=== PATIENT | male | born 1935 | race Caucasian/White ===

== ENCOUNTER 2018-09-16 01:29 | Observation (INO) | payer MEDICARE, OTHER ==
[2018-09-16] MEDS ORDERED: MORPHINE SULFATE 10 MG/ML VIAL IVP ONE (01:41)
[2018-09-16] MEDS ORDERED: ONDANSETRON HCL IV 4 MG/2 ML VIAL IVP ONE (01:41)
[2018-09-16] MEDS ORDERED: 0.9 % SODIUM CHLORIDE 1000ML 1,000 ML IV SCH (01:45)
--- NOTE | 2018-09-16 01:46 | Emergency Department Record ---
History of Present Illness - General Chief Complaint: Abdominal Pain Stated Complaint: ABDOMINAL PAIN Time Seen by Provider: 09/16/18 01:41 Source: Patient Mode of Arrival: Ambulatory Limitations: No limitations - History of Present Illness Initial Comments: 83 yo male presents to ED for evaluation of epigastric pain that began several hours ago, reports vomiting x 1, denies pain to the lower abdomen. Patient does report eating a greasy meal earlier in the evening. Patient denies fevers , chills, or recent illness. Patient denies previous abdominal surgery or urinary symptoms. Patient denies previous history of diverticulitis, PUD, or colitis. MD Complaint: Abdominal pain Onset/Timin -: Hour(s) Location: Epigastric Radiation: None Migration to: No migration Severity: Moderate Quality: Aching Consistency: Constant Improves With: Nothing Worsens With: Nothing Associated Symptoms: Vomiting - Related Data Home Medications Medication Instructions Recorded Confirmed Last Taken Amlodipine Besylate/Benazepril 1 tab PO DAILY 09/16/18 09/16/18 09/15/18 [Amlodipine-Benazepril 10-20 mg] Allergies Allergy/AdvReac Type Severity Reaction Status Date / Time No Known Drug Allergies Allergy Verified 09/16/18 02:05 Review of Systems Constitutional: Denies: Chills, Fever, Malaise, Night sweats Eyes: Denies: Eye discharge, Eye pain ENT: Denies: Congestion, Ear pain, Epistaxis Respiratory: Denies: Cough, Dyspnea Cardiovascular: Denies: Chest pain, Dyspnea on exertion Endocrine: Denies: Fatigue, Heat or cold intolerance Gastrointestinal: Reports: Abdominal pain, Nausea, Vomiting. Denies: Constipation Genitourinary: Denies: Incontinence, Retention Musculoskeletal: Denies: Arthralgia, Back pain Skin: Denies: Bruising, Change in color Neurological: Denies: Abnormal gait, Confusion, Headache, Seizure Psychiatric: Denies: Anxiety Hematological/Lymphatic: Denies: Anemia, Blood Clots Physical Exam - General General Appearance: Alert, Oriented x3, Cooperative, Moderate distress Limitations: No limitations - Head Head exam: Atraumatic, Normocephalic, Normal inspection Head exam detail: negative: Abrasion, Contusion, Lazcano's sign, General tenderness, Hematoma, Laceration - Eye Eye exam: Normal appearance. negative: Conjunctival injection, Periorbital swelling, Periorbital tenderness, Scleral icterus - ENT Ear exam: negative: Auricular hematoma, Auricular trauma Nasal Exam: negative: Active bleeding, Discharge, Dried blood, Foreign body Mouth exam: negative: Drooling, Laceration, Muffled voice, Tongue elevation - Neck Neck exam: Normal inspection. negative: Meningismus, Tenderness - Respiratory Respiratory exam: Normal lung sounds bilaterally. negative: Rales, Respiratory distress, Rhonchi, Stridor - Cardiovascular Cardiovascular Exam: Regular rate, Normal rhythm, Normal heart sounds - GI/Abdominal GI/Abdominal exam: Soft, Tenderness (TTP epigastirc region on examination, no rebound/guarding present.). negative: Rebound, Rigid - Rectal Rectal exam: Deferred - exam: Deferred - Extremities Extremities exam: Normal inspection. negative: Pedal edema, Tenderness - Back Back exam: Denies: CVA tenderness (R), CVA tenderness (L) - Neurological Neurological exam: Alert, Normal gait, Oriented X3 - Psychiatric Psychiatric exam: Normal affect, Normal mood - Skin Skin exam: Normal color. negative: Abrasion Type of lesion: negative: abrasion Course Vital Signs 09/16/18 01:39 Temperature 97.5 F L Pulse Rate [ 75 Pulse Ox Probe] Respiratory 24 Rate Blood Pressure 201/107 [Right Arm] Pulse Ox 97 - Reevaluation(s) Reevaluation #1: 09/16/18 01:50 EKG: NSR 76 RBBB, No acute ST-T wave changes are present. Reevaluation #2: 09/16/18 02:18 Laboratory studies reviewed and are grossly unremarkable for an acute process except for: Potassium 4.6 BUN 24 Glucose 209 Lipase 63 Reevaluation #3: 09/16/18 02:48 Patient is back from CT imaging, reports improvement in his pain symptoms. Awaiting CT imaging results at this time. Reevaluation #4: 09/16/18 04:11 CT Abdomen and Pelvis: 1. Colonic diverticulosis, no diverticulitis 2. Fat containing umbilical hernia without bowel 3. Cholelithiasis, no biliary duct dilatation UA reviewed and appears negative for an acute process. Patient reports that his pain symptoms are greatly improved although still present. Will admit for pain control and US later this morning. Reevaluation #5: 09/16/18 06:47 Case was discussed with Dr. Farmer, will accept admission at this time. Medical Decision Making - Lab Data Result diagrams: 09/16/18 01:50 09/16/18 01:50 Disposition Disposition: Admit Clinical Impression: Biliary colic Abdominal pain Qualifiers: Abdominal location: epigastric Qualified Code(s): R10.13 - Epigastric pain Disposition: Still a Patient at [facility] Decision to Admit: Admit from ER Decision to Admit Date: 09/16/18 Decision to Admit Time: 04:34 Condition: (2) Stable Time of Disposition: 04:34 Quality - Quality Measures Quality Measures: N/A - Blood Pressure Screening Does Patient Have Any of the Following: Active Dx of HTN Blood Pressure Classification: Pre-Hypertensive BP Reading Systolic Measurement: 172 Diastolic Measurement: 89 Screening for High Blood Pressure: Patient Exclusion, Hx of HTN [[id number]] Pre-Hypertensive Follow-up Interventions: Referral to alternative/primary care provider.
[2018-09-16 02:01] LABS: HEMOGLOBIN 13.9 gm/dl (14.0-18.0); MEAN CELL VOLUME 84.4 fl (81-97); MEAN CORPUSCULAR HEMOGLOBIN 29.3 pg (27-33); MEAN CORPUSCULAR HGB CONC 34.8 g/dl (32-36); MEAN PLATELET VOLUME 9.7 fl (7.4-10.4); PLATELET COUNT 151 K/uL (130-400); RED BLOOD COUNT 4.74 M/uL (4.40-5.70); RED CELL DISTRIBUTION WIDTH 13.1 % (11.5-14.5)
[2018-09-16 02:10] LABS: BLOOD UREA NITROGEN 24 mg/dL (8-23); CREATININE 1.2 mg/dL (0.7-1.2); EST GLOMERULAR FILTRATION RATE > 60 mL/min
[2018-09-16 02:11] LABS: LIPASE 63 U/L (13-60); TOTAL PROTEIN 7.7 g/dL (6.6-8.7)
[2018-09-16 02:13] LABS: GLUCOSE,RANDOM 209 mg/dL (74-109)
[2018-09-16 02:16] LABS: ALB/GLOB RATIO 1.5 (1.1-1.8); ALBUMIN 4.6 g/dL (4.0-5.0); ALKALINE PHOSPHATASE 79 U/L (55-149); ALT/SGPT 15 U/L (<41); AST/SGOT 13 U/L (10.0-50.0)
[2018-09-16 02:18] LABS: ANISOCYTOSIS 1+; PLATELET ESTIMATE NORMAL (NORMAL)
[2018-09-16 04:21] LABS: URINE APPEARANCE CLEAR; URINE BILIRUBIN NEGATIVE (NEGATIVE); URINE BLOOD TRACE-I (NEGATIVE); URINE COLOR YELLOW; URINE KETONE NEGATIVE (NEGATIVE); URINE LEUKOCYTE ESTERASE NEGATIVE (NEGATIVE); URINE NITRITE NEGATIVE (NEGATIVE); URINE PROTEIN TRACE (NEGATIVE); URINE UROBILINOGEN 0.2 E.U./dL (0.20 - 1.00)
[2018-09-16 04:34] LABS: URINE EPITHELIAL CELLS NONE SEEN (FEW); URINE RBC NONE SEEN (NONE SEEN); URINE WBC NONE SEEN (0-2/hpf)
[2018-09-16] MEDS ORDERED: 0.9 % SODIUM CHLORIDE 1000ML 1,000 ML IV PRN (05:02)
[2018-09-16] MEDS ORDERED: ONDANSETRON HCL IV 4 MG/2 ML VIAL IVP PRN (05:02)
[2018-09-16] MEDS ORDERED: MORPHINE SULFATE 10 MG/ML VIAL IVP PRN (05:02)
--- NOTE | 2018-09-16 08:39 | History & Physical ---
History of Present Illness - Date of Service Date of Service for History & Physical: 09/16/18 - History of Present Illness Admitting Diagnosis: Abdominal pain. Biliary colic History of Present Illness: Mr. Cai is a 83 y/o male with very little medical history who presented last evening with a complaint of acute abdominal pain beginning last evening around 1 am. The patient says that the pain was in the upper abdomen, non- radiating, sharp and about a 8/10 in severity. The patient says that he did not have any nausea/vomiting, fevers, chills or changes in his bowel movements, changes in weight or appetite. On arrival to the ED the patient had and abdominal CT w/ contrast which was suggestive of cholethisiasis with some fat stranding and extensive colonic diverticulosis. The patient's labs were unremarkable and he was afebrile on admission. He subsequently had an abdominal ultrasound which showed gallbladder wall thickening, cholethisiasis, + Silva's sign. On evaluation this morning the patient is awake, alert and oriented and his in no distress. His physical examination does not reveal acute abdominal pain and he states that he feels that he is back to normal. Travel Screening - Travel/Exposure Within Last 30 Days Have you traveled within the last 30 days?: No - Travel/Exposure Within Last Year Have you traveled outside the [place] in the last year?: No - Additonal Travel Details Have you been exposed to anyone with a communicable illness?: No - Travel Symptoms Symptom Screening: None Review of Systems Constitutional: Denies: Chills, Fever, Malaise, Night sweats Eyes: Denies: Eye discharge, Eye pain ENT: Denies: Congestion, Ear pain, Epistaxis Respiratory: Denies: Cough, Dyspnea Cardiovascular: Denies: Chest pain, Dyspnea on exertion Endocrine: Denies: Fatigue, Heat or cold intolerance Gastrointestinal: Reports: Abdominal pain, Nausea, Vomiting. Denies: Constipation Genitourinary: Denies: Incontinence, Retention Musculoskeletal: Denies: Arthralgia, Back pain Skin: Denies: Bruising, Change in color Neurological: Denies: Abnormal gait, Confusion, Headache, Seizure Psychiatric: Denies: Anxiety Hematological/Lymphatic: Denies: Anemia, Blood Clots Past Medical History - SOCIAL HISTORY Smoking Status: Former smoker Alcohol Use: Occasional Drug Use: None - RESPIRATORY Hx Respiratory Disorders: No - CARDIOVASCULAR Hx Cardio Disorders: Yes Hx Hypertension: Yes - NEURO Hx Neuro Disorders: No - GI Hx GI Disorders: Yes Hx of Polyps: Yes (pt states polyps removed in past.) - Hx Genitourinary Disorders: No - ENDOCRINE Hx Endocrine Disorders: No - MUSCULOSKELETAL Hx Musculoskeletal Disorders: No - PSYCH Hx Psych Problems: No - HEMATOLOGY/ONCOLOGY Hx Hematology/Oncology Disorders: No Family Medical History Any Significant Family History?: Yes Hx Stroke: Father H&P Meds/Allergies - Allergies Allergies: Allergies Allergy/AdvReac Type Severity Reaction Status Date / Time No Known Drug Allergies Allergy Verified 09/16/18 02:05 - Home Medications Home Medications Medication Instructions Recorded Confirmed Last Taken Amlodipine Besylate/Benazepril 1 tab PO DAILY 09/16/18 09/16/18 09/15/18 [Amlodipine-Benazepril 10-20 mg] - Active Medications Active Medications: Current Medications Amlodipine Besylate (Norvasc) 10 mg PO DAILY PACO Benazepril HCl (Lotensin) 20 mg PO DAILY PACO Sodium Chloride () 1,000 mls @ 100 mls/hr IV .Q10H PRN PRN Reason: LARGE VOLUME IV Morphine Sulfate (Morphine Sulfate) 5 mg IVP Q4H PRN PRN Reason: ABDOMINAL PAIN Ondansetron HCl (Zofran) 4 mg IVP Q4H PRN PRN Reason: NAUSEA Physical Exam - Vital Signs Vital Signs: Vital Signs - Last 24 Hrs Temp Pulse Resp BP BP Pulse Ox 09/16/18 05:49 18 09/16/18 05:05 98.2 F 91 H 18 172/89 95 09/16/18 04:46 84 20 147/95 96 09/16/18 03:12 74 22 172/90 96 09/16/18 02:40 98 H 20 94 L 09/16/18 01:39 97.5 F L 75 24 201/107 97 - General General Appearance: Alert, Oriented x3, Cooperative, Moderate distress Limitations: No limitations - Head Head exam: Atraumatic, Normocephalic, Normal inspection Head exam detail: negative: Abrasion, Contusion, Lazcano's sign, General tenderness, Hematoma, Laceration - Eye Eye exam: Normal appearance. negative: Conjunctival injection, Periorbital swelling, Periorbital tenderness, Scleral icterus - ENT Ear exam: negative: Auricular hematoma, Auricular trauma Nasal Exam: negative: Active bleeding, Discharge, Dried blood, Foreign body Mouth exam: negative: Drooling, Laceration, Muffled voice, Tongue elevation - Neck Neck exam: Normal inspection. negative: Meningismus, Tenderness - Respiratory Respiratory exam: Normal lung sounds bilaterally. negative: Rales, Respiratory distress, Rhonchi, Stridor - Cardiovascular Cardiovascular Exam: Regular rate, Normal rhythm, Normal heart sounds Peripheral Pulses: 3+: Radial (R), Radial (L), Dorsalis Pedis (R), Dorsalis Pedis (L) - GI/Abdominal GI/Abdominal exam: Soft. negative: Guarding, Organomegaly, Rebound, Rigid, Tenderness - Rectal Rectal exam: Deferred - exam: Deferred - Extremities Extremities exam: Normal inspection. negative: Pedal edema, Tenderness - Back Back exam: Denies: CVA tenderness (R), CVA tenderness (L) - Neurological Neurological exam: Alert, Normal gait, Oriented X3 - Psychiatric Psychiatric exam: Normal affect, Normal mood - Skin Skin exam: Normal color. negative: Abrasion Type of lesion: negative: abrasion Results - Labs Result Diagrams: 09/16/18 01:50 09/16/18 01:50 Labs Last 24 Hours: Laboratory Results - last 24 hr 09/16/18 09/16/18 09/16/18 01:50 01:50 Unknown WBC 9.0 RBC 4.74 Hgb 13.9 L Hct 40.0 L MCV 84.4 MCH 29.3 MCHC 34.8 RDW 13.1 Plt Count 151 MPV 9.7 Neutrophils % 84.0 H Band Neutrophils % 1.0 Eosinophils % Not Reportable Basophils % Not Reportable Lymphocytes 8.0 L Monocytes 7.0 Platelet Estimate Normal Anisocytosis 1+ Sodium 137 Potassium 4.6 H Chloride 98 Carbon Dioxide 24.0 Anion Gap 15.0 BUN 24 H Creatinine 1.2 Estimated GFR > 60 Random Glucose 209 H Calcium 9.1 Total Bilirubin 0.40 AST 13 ALT 15 Alkaline Phosphatase 79 Total Protein 7.7 Albumin 4.6 Globulin 3.1 Albumin/Globulin Ratio 1.5 Lipase 63 H Urine Color Yellow Urine Appearance Clear Urine pH 6.5 Ur Specific Nelson 1.015 Urine Protein Trace H Urine Glucose (UA) 250 mg/dl H Urine Ketones Negative Urine Blood Trace-i Urine Nitrite Negative Urine Bilirubin Negative Urine Urobilinogen 0.2 Ur Leukocyte Esterase Negative Urine RBC None seen Urine WBC None seen Ur Epithelial Cells None seen VTE H&P Assessment - Risk for VTE Risk for VTE: Yes Risk Level: Moderate Risk Assessment Date: 09/16/18 Risk Assessment Time: 08:39 VTE Orders Placed or Will Be Placed: Yes Plan - Detailed Diagnosis and Plan (1) Abdominal pain Current Visit: Yes Status: Acute Qualifiers: Abdominal location: epigastric Qualified Code(s): R10.13 - Epigastric pain Base Code: R10.9 - UNSPECIFIED ABDOMINAL PAIN Comment: 09/16/18: - CT abdomen/plevis: multiple cholelithiasis, extensive colonic diverticula, bilateral renal cysts. - Abdominal US: cholelithiasis, gallbladder wall thickening, + Silva's sign. - No electrolyte abnormalities. - Morphine 5mg Q4H PRN, IVF Nacl 0.9% @ 100ml/hr. - NPO, advance diet with clears to solids as tolerated. (2) Biliary colic Current Visit: Yes Status: Acute Base Code: K80.50 - CALCULUS OF BILE DUCT W /O CHOLANGITIS OR CHOLECYST W/O OBST Comment: 09/16/18: - CT/Abdomen and US suggestive of cholethiasis and gallbladder wall thickening. - No SIRS/Sepsis criteria met. No abx at this time. - Morphine 5mg Q4H PRN, Advance diet as tolerated. (3) HTN (hypertension) Current Visit: Yes Status: Acute Base Code: I10 - ESSENTIAL (PRIMARY) HYPERTENSION Comment: 09/16/18: - Resume Benazipril 20mg QD (4) DVT prophylaxis Current Visit: Yes Status: Acute Base Code: [id number] - Comment: 09/16/18: - Low risk. Ambulation and SCDs while in bed. (5) DNR (do not resuscitate) Current Visit: Yes Status: Acute Base Code: Z66 - DO NOT RESUSCITATE Comment: 09/16/18: - Discussed code status with the patient. The patient chooses to be DNR.
[2018-09-16] MEDS ORDERED: AMLODIPINE BESYLATE 5MG TAB PO SCH (10:00)
[2018-09-16] MEDS ORDERED: BENAZEPRIL 20 MG TABLET PO SCH (10:00)
--- NOTE | 2018-09-16 12:30 | CT SCAN REPORT ---
EXAM: CT OF THE ABDOMEN AND PELVIS WITH CONTRAST HISTORY: ABDOMINAL PAIN. TECHNIQUE: CT of the abdomen and pelvis was obtained utilizing 100 ml Omnipaque 300 intravenous contrast. Comparison: None. FINDINGS: The lung bases are clear. The liver appears unremarkable. Multiple gallstones. Mild pericholecystic fat stranding. The biliary tree is not appreciably dilated. Unremarkable appearance of the spleen, adrenal glands, and pancreas. Multiple bilateral renal cortical cysts. No hydronephrosis. Symmetric renal perfusion. Extensive colonic diverticulosis without evidence of acute diverticulitis. Post surgical changes involving the cecum. The stomach and small bowel are not dilated. No free air or free fluid. Mildly thickened appearance of the distal esophagus near the gastroesophageal junction. The prostate gland appears enlarged with coarse internal calcification. Unremarkable appearance of the urinary bladder. The aortoiliac arterial access is mildly calcified and tortuous without evidence of aneurysm or dissection. No acute osseous findings. IMPRESSION: 1. CHOLELITHIASIS WITH MILD PERICHOLECYSTIC FAT STRANDING; FINDINGS MAY BE SEEN IN THE SETTING OF CHOLECYSTITIS. ADDITIONAL EVALUATION WITH ULTRASOUND MAY PROVIDE ADDITIONAL CHARACTERIZATION. 2. MILDLY THICKENED APPEARANCE OF THE DISTAL ESOPHAGUS NEAR THE GASTROESOPHAGEAL JUNCTION; FOLLOW-UP WITH ENDOSCOPY MAY HELP TO EXCLUDE AN UNDERLYING INFECTIOUS, INFLAMMATORY, OR NEOPLASTIC PROCESS. 3. EXTENSIVE COLONIC DIVERTICULOSIS WITHOUT EVIDENCE OF ACUTE DIVERTICULITIS. 4. BILATERAL RENAL CYSTS. 5. PROSTATOMEGALY. 6. NOT MENTIONED ABOVE, THERE IS A TINY FAT CONTAINING UMBILICAL HERNIA. 7. A PRELIMINARY REPORT WAS PROVIDED BY THE [facility]. JOB NUMBER: [id number] MTDD
--- NOTE | 2018-09-16 12:37 | ULTRASOUND REPORT ---
EXAM: COMPLETE ABDOMINAL ULTRASOUND HISTORY: SEVERE EPIGASTRIC PAIN. TECHNIQUE: Complete abdominal ultrasound was obtained. Comparison: CT of the abdomen and pelvis 09/16/18. FINDINGS: The visualized pancreatic head and body are within normal limits. The pancreatic tail is obscured by shadowing bowel gas. The visualized abdominal aorta appears nondilated. Unremarkable appearance of the visualized hepatic parenchyma. Flow is demonstrated within the main portal vein. Unremarkable limited howell scale appearance of the inferior vena cava near the level of the liver. Numerous shadowing gallstones within the gallbladder lumen. The gallbladder wall is diffusely thickened measuring up to 2 cm. The common bile duct is not dilated, measuring 2 mm in diameter. Right renal length 13.1 cm. No hydronephrosis. No shadowing calculi are seen. There is a small cortical cyst near the lower pole measuring 10 mm. Left renal length 12.2 cm. No hydronephrosis. No shadowing calculi are seen. Multiple anechoic renal cortical cysts are seen, the largest measuring 4.1 cm. Unremarkable appearance of the spleen. IMPRESSION: 1. CHOLELITHIASIS WITH DIFFUSE GALLBLADDER WALL THICKENING WELL A REPORTED POSITIVE KULKARNI'S SIGN, SUSPICIOUS FOR ACUTE CHOLECYSTITIS. 2. BILATERAL RENAL CYSTS. JOB NUMBER: [id number] [facility]
--- NOTE | 2018-09-16 15:30 | Discharge Summary ---
Providers Discharge Summary Date: 09/16/18 Date of admission: 09/16/18 04:47 Attending physician: ANA TODD Primary care physician: LOBITO KARIMI D.O. Physical Exam - Vital Signs Vital Signs: Vital Signs - Last 24 Hrs Temp Pulse Resp BP BP Pulse Ox 09/16/18 15:18 97.9 F 69 16 155/78 96 09/16/18 12:59 97.9 F 73 17 135/77 97 09/16/18 09:00 18 09/16/18 05:49 18 09/16/18 05:05 98.2 F 91 H 18 172/89 95 09/16/18 04:46 84 20 147/95 96 09/16/18 03:12 74 22 172/90 96 09/16/18 02:40 98 H 20 94 L 09/16/18 01:39 97.5 F L 75 24 201/107 97 - General General Appearance: Alert, Oriented x3, Cooperative, Moderate distress Limitations: No limitations - Head Head exam: Atraumatic, Normocephalic, Normal inspection Head exam detail: negative: Abrasion, Contusion, Lazcano's sign, General tenderness, Hematoma, Laceration - Eye Eye exam: Normal appearance. negative: Conjunctival injection, Periorbital swelling, Periorbital tenderness, Scleral icterus - ENT Ear exam: negative: Auricular hematoma, Auricular trauma Nasal Exam: negative: Active bleeding, Discharge, Dried blood, Foreign body Mouth exam: negative: Drooling, Laceration, Muffled voice, Tongue elevation - Neck Neck exam: Normal inspection. negative: Meningismus, Tenderness - Respiratory Respiratory exam: Normal lung sounds bilaterally. negative: Rales, Respiratory distress, Rhonchi, Stridor - Cardiovascular Cardiovascular Exam: Regular rate, Normal rhythm, Normal heart sounds Peripheral Pulses: 3+: Radial (R), Radial (L), Dorsalis Pedis (R), Dorsalis Pedis (L) - GI/Abdominal GI/Abdominal exam: Soft. negative: Guarding, Organomegaly, Rebound, Rigid, Tenderness - Rectal Rectal exam: Deferred - exam: Deferred - Extremities Extremities exam: Normal inspection. negative: Pedal edema, Tenderness - Back Back exam: Denies: CVA tenderness (R), CVA tenderness (L) - Neurological Neurological exam: Alert, Normal gait, Oriented X3 - Psychiatric Psychiatric exam: Normal affect, Normal mood - Skin Skin exam: Normal color. negative: Abrasion Type of lesion: negative: abrasion Hospitalization - Hospitalization Admission Diagnosis: Abdominal pain. Biliary colic - Problem List/Discharge Diagnosis (1) Abdominal pain Current Visit: Yes Status: Acute Discharge Diagnosis: Abdominal location: epigastric Qualified Code(s): R10.13 - Epigastric pain Base Code: R10.9 - UNSPECIFIED ABDOMINAL PAIN Comment: 09/16/18: - CT abdomen/plevis: multiple cholelithiasis, extensive colonic diverticula, bilateral renal cysts. - Abdominal US: cholelithiasis, gallbladder wall thickening, + Silva's sign. - No electrolyte abnormalities. - Morphine 5mg Q4H PRN, IVF Nacl 0.9% @ 100ml/hr. - NPO, advance diet with clears to solids as tolerated. (2) Biliary colic Current Visit: Yes Status: Acute Base Code: K80.50 - CALCULUS OF BILE DUCT W /O CHOLANGITIS OR CHOLECYST W/O OBST Comment: 09/16/18: - CT/Abdomen and US suggestive of cholethiasis and gallbladder wall thickening. - No SIRS/Sepsis criteria met. No abx at this time. - Morphine 5mg Q4H PRN, Advance diet as tolerated. (3) HTN (hypertension) Current Visit: Yes Status: Acute Base Code: I10 - ESSENTIAL (PRIMARY) HYPERTENSION Comment: 09/16/18: - Resume Benazipril 20mg QD (4) DVT prophylaxis Current Visit: Yes Status: Acute Base Code: [id number] - Comment: 09/16/18: - Low risk. Ambulation and SCDs while in bed. (5) DNR (do not resuscitate) Current Visit: Yes Status: Acute Base Code: Z66 - DO NOT RESUSCITATE Comment: 09/16/18: - Discussed code status with the patient. The patient chooses to be DNR. - Hospitalization Course Hospital Course: Mr. Cai is a 83 y/o male with very little medical history who presented last evening with a complaint of acute abdominal pain beginning last evening around 1 am. The patient says that the pain was in the upper abdomen, non- radiating, sharp and about a 8/10 in severity. The patient says that he did not have any nausea/vomiting, fevers, chills or changes in his bowel movements, changes in weight or appetite. On arrival to the ED the patient had and abdominal CT w/ contrast which was suggestive of cholethisiasis with some fat stranding and extensive colonic diverticulosis. The patient's labs were unremarkable and he was afebrile on admission. He subsequently had an abdominal ultrasound which showed gallbladder wall thickening, cholethisiasis, + Silva's sign. On evaluation this morning the patient is awake, alert and oriented and his in no distress. His physical examination does not reveal acute abdominal pain and he states that he feels that he is back to normal. Evaluation @ 3:00pm: The patient was able to tolerate diet of clear liquids advanced to solids at lunch without any new complaint of abdominal pain, nausea or vomiting. He is to be discharged home and follow up with Dr. Ferguson within 5- 7 days. Procedures: Imaging and X-Rays 09/16/18 01:41 ABDOMEN/PELVIS W CONTRAST [CT] Stat 09/16/18 05:02 ABDOMEN, COMPLETE [US] Stat Cardiology Procedures 09/16/18 01:41 EKG NOW Abnormal Labs: Abnormal Lab Results 09/16/18 09/16/18 09/16/18 Range/Units 01:50 01:50 Unknown Hgb 13.9 L (14.0-18.0) gm/dl Hct 40.0 L (42.0-52.0) % Neutrophils % 84.0 H (47-80) % Lymphocytes 8.0 L (16-45) % Potassium 4.6 H (3.4-4.5) mmol/L BUN 24 H (8-23) mg/dL Random Glucose 209 H (74-109) mg/dL Lipase 63 H (13-60) U/L Urine Protein Trace H (NEGATIVE) Urine Glucose (UA) 250 mg/dl H (NEGATIVE) Condition at Discharge: (2) Stable Discharge Medications - Discharge Medications Home Medications: Ambulatory Orders Amlodipine Besylate/Benazepril [Amlodipine-Benazepril 10-20 mg] 1 tab PO DAILY 09/16/18 [Last Taken 09/15/18] Discharge Plan - Discharge Instructions Activity at Discharge: Resume Usual Activities As Tolerated Diet at Discharge: Advance to Usual Diet Additional Instructions: Try to reduce your intake of fatty foods and avoid eating late night meals. If you have recurrence of your pain please return to the ED. Make an appt with Dr. Ferguson to be seen in 5-7 days from discharge. Quality Measures - Quality Measures Quality Measures: Advance Directives, Documentation of Current Medications in Medical Record, Elder Maltreatment Screen and Follow-Up Plan, Screening for High Blood Pressure and F/U Documented - Current Medications Quality Measure: Measure #130: Documentation of Current Medications Documentation of Current Medications: <Current Medications Documented/Reviewed> [[id number]] - Blood Pressure Screening Quality Measure: Screening for High Blood Pressure and Follow-Up Documented Does Patient Have Any of the Following: Active Dx of HTN Blood Pressure Classification: Hypertensive Reading Systolic Measurement: 155 Diastolic Measurement: 78 Screening for High Blood Pressure: Patient Exclusion, Hx of HTN [[id number]] - Advance Directives Quality Measure: Measure #47: Care Plan Advance Directives Established: No Advance Directives Information Provided To Patient: Already Provided Advance Directives on File: No Living Will: No Power of Reverser: No Advance Care Planning: <Care Plan/Decision Maker Not Decided; Discussed & Documented> [[id number]] - Elder Abuse Suspicion Index Screening: Elder Abuse Suspicion Index Screening Rely on people for bathing, dressing, shopping, banking, etc: No Prevented from getting food, clothes, medication, etc: No Made to feel shamed or threatened by someone: No Forced to sign papers or use money against will: No Feel afraid, touched in ways not wanted or hurt physically: No Poor eye contact, withdrawn, malnourished, cuts or bruises: No Screening Result: Negative result EASI Reference Information: Jem DEVLIN, Luke C, Milan D, Jackelyn Ramirez.Development and validation of a tool to assist physicians identification of elder abuse: The Elder Abuse Suspicion Index (EASI ). Journal of Elder Abuse and Neglect, 2008; 20 (3): 276-300. - Elder Maltreatment Screen Quality Measures: Elder Maltreatment Screen and Follow-Up Plan Elder Maltreatment Screen: <Negative, No Follow-Up Plan Required> [[id number]]
== END 2018-09-16 13:55 | disposition home or self-care (01) ==
LOC: ER 01:29 → MEDSURG 04:47
PROVIDERS: ADMIT Internal Medicine; ATTEND Internal Medicine
DX: K80.50 Calculus of bile duct without cholangitis or cholecystitis without obstruction (principal); I10 Essential (primary) hypertension; Z66 Do not resuscitate; Z87.891 Personal history of nicotine dependence
CPT/HCPCS: 83690; 80053; 81001; 85027; 76700; 74177; 93005; 93010; G0378; Q9967; J2405; J2270; 96374; 96375; 99236; 99285; J7030